=== PATIENT | male | born 1950 | race Caucasian/White ===

== ENCOUNTER 2016-12-14 06:21 | Emergency (ER) | payer MEDICARE, BC ==
--- NOTE | 2016-12-14 07:13 | ERNOTE ---
Upper Extremity HPI - General Extremities Pain Location: wrist: left - fell on to arm/ shoulder Time Seen by Provider: 12/14/16 06:55 Source: patient Exam Limitations: no limitations - Immun/Allergies/Home Medications Immunizations: IMMUNIZATION HX Immunizations Up to Date Yes History of Influenza Vaccine Yes Hx Pneumococcal Vaccination Yes Allergies/Adverse Reactions: Allergies Allergy/AdvReac Type Severity Reaction Status Date / Time No Known Allergies Allergy Verified 12/14/16 06:44 Home Medications: HOME MEDICATIONS Aspirin [Aspirin Enteric Coated] 81 mg PO DAILY 12/16/12 [Last Taken Unknown] Atenolol [Tenormin] 12.5 mg PO DAILY 12/16/12 [Last Taken Unknown] FLUoxetine HCL [Prozac] 40 mg PO DAILY 12/16/12 [Last Taken Unknown] [place]-3 Fatty Acids [Fish Oil] 1,000 mg PO DAILY 12/16/12 [Last Taken Unknown] Parsley/Garlic [Garlic & Parsley Tablet] 1 each PO DAILY 12/16/12 [Last Taken Unknown] Simvastatin [Zocor] 20 mg PO HS 12/16/12 [Last Taken Unknown] Calcium/Cranberry Fruit [Cranberry 400 mg Caplet] 1 each PO DAILY 08/11/13 [ Last Taken Unknown] Cholecalciferol (Vitamin D3) [Vitamin D] 400 unit PO DAILY 08/11/13 [Last Taken Unknown] Cyanocobalamin/Folic Acid [Vitamin W87-Snxmu Acid Tablet] 1 each PO DAILY [Last Taken Unknown] Vitamin B Complex [B Complex] 1 each PO DAILY 08/11/13 [Last Taken Unknown] metFORMIN HCL [Glucophage] 850 mg PO BID 08/11/13 [Last Taken Unknown] Phenylephrine/Dm/Acetaminop/GG [Sudafed PE Cold & Cough Caplet] 1 each PO DAILY PRN 10/23/13 [Last Taken Unknown] - History of Present Illness Narrative: Pt was walking the dog this am and slipped on wet grass injuring his left shoulder and wrist Occurred: just prior to arrival Location of Incident: home Severity: mild, moderate Method of Injury: Reports: fell Reason for Fall: Reports: slipped Loss of Consciousness: Reports: no loss of consciousness Modifying Factors - (Improves): Reports: immobilization Modifying Factors - (Worsens): Reports: movement Associated Symptoms: Denies: numbness distally Review of Systems - Review of Systems Constitutional: Absent: recent illness EYE: Absent: vision changes ENT: Absent: nose congestion, nasal drainage Respiratory: Absent: shortness of breath, cough Cardiology: Absent: chest pain, palpitations Gastrointestinal/Abdominal: Present: no symptoms reported Genitourinary: Present: no symptoms reported Musculoskeletal: Present: See HPI. Absent: back pain, neck pain Skin: Present: See HPI Neurological: Absent: headache, dizziness/light-headedness Endocrine: Present: no symptoms reported Hematologic/Lymphatic: Present: no symptoms reported Psych: Present: no symptoms reported - Patient's Past Medical History Patient History - Medical: Arthritis, Diabetes Type 2, Kidney stone, Renal Failure, Other - Marfan's syndrome Patient History - Cardiac/Respiratory: Other - mildly enlarged aortic root Patient History - Cancer: No Hx of Cancer Patient History - Surgical Procedures: Cholecystectomy, T & A, Other Patient History - Other: None - Social History Living Situations: home Psych History: Hx of Depression Smoking Status: Never smoker Have you smoked in the past 12 months: No Do you dip or chew tobacco: No Alcohol Use: none Drug Use: none - Immunizations Immunizations Up to Date: Yes Hx Pneumococcal Vaccination: Yes History of Influenza Vaccine: Yes Physical Exam - Physical Exam General Appearance: Present: wd/wn, alert, no apparent distress Eye Exam: Normal inspection: bilateral, PERRL: bilateral Ears, Nose, Throat: Present: normal ENT inspection Neck: Present: normal inspection, nontender, supple Respiratory: Present: no respiratory distress, no accessory muscle use. Absent : chest tenderness Cardiovascular/Chest: Present: regular rate, rhythm Back Exam: Present: normal inspection, normal range of motion, no vertebral tenderness Extremity Exam: Present: normal except -, decreased range of motion - left wrist , bony tenderness - left wrist medial more than lateral, joint swelling - left wrist mild Neurological Exam: Present: alert, oriented, normal mood/affect Skin Exam: Present: warm/dry, other - abrasions bilateral knees, elbows, wrists no lacerations minimal bleeding ED Progress - Vital Signs Patient's Vital Signs:: I have reviewed the patient's vital signs. Vital Signs: Vital Signs 12/14/16 06:37 Temperature 36.2 C L Pulse Rate 62 Respiratory 20 Rate Blood Pressure 117/60 O2 Sat by Pulse 98 Oximetry - X-Ray X-Ray #1 X-Ray: wrist Interpretation: Reviewed by me X-ray Comments: comminuted distal radius fracture with volar displacement and intraarticular extension. X-Ray #2 X-Ray: shoulder Interpretation: Reviewed by me X-ray Comments: no acute changes. - Progress/Reassessment Chief Complaint: Wrist Injury/Pain Progress Note-Subjective: 12/14/16 08:[address] Elizodno and he reviewed the patients x-ray. He would like a OCL splint placed on the wrist and the patient to return at 10:30 today for surgery. I offered IM pain medication for the patient and the patient declined. Pt instructed to remain NPO. Pt and express understanding Departure Clinical Impression: Fracture of left distal radius Qualifiers: Encounter type: initial encounter Fracture type: closed Fracture morphology: Alejandra's Qualified Code(s): S52.542A - Alejandra's fracture of left radius, initial encounter for closed fracture - Departure Disposition: Home Follow Up Needed Condition: Good Instructions: Colles Fracture Additional Instructions: Return here at 10:30 for surgery. Do not eat or drink anything. Referrals: Roe Jacques DO [Primary Care Provider] -
--- OUTSIDE RECORDS SUMMARY | 2016-12-14 07:32 | XMS REPORT | Continuity of Care Document ---
:1950 Author Organization [facility] ([facility]) Address [place] [address] Phone [phone] Care Team Providers Name Role Phone Roe Jacques Primary Care Provider [phone] Source Comments This disclosure is being made pursuant to the Care Everywhere program, applicable federal and state laws, and may not contain all informaitonavailable regarding this patient.[facility] ([facility]) Active Allergies and Adverse Reactions No Known Allergies Current Medications Prescription Sig. Disp. Refills Start Date End Date Status aspirin 81 mg tablet take 81 mg by Active mouth daily. simvastatin (ZOCOR) 20 mg take 20 mg by Active tablet mouth every evening. atenolol (TENORMIN) 25 mg Take 12.5 mg by Active tablet mouth every evening. FLUoxetine (PROZAC) 20 mg take 20 mg by Active capsule mouth daily. DOCOSAHEXANOIC ACID/EPA Take by mouth Active (FISH OIL PO) daily. VITAMIN B COMPLEX PO Take by mouth Active daily. GARLIC PO Take by mouth Active daily. CRANBERRY EXTRACT PO Take by mouth Active daily. Ca Cmb Take 1,000 mg by Active No.[id number]-Aloe mouth. 120-1,000-10 mg-unit-mg Tab DEXTRAN 70/HYPROMELLOSE Instill onto the Active (ARTIFICIAL TEARS OPHTH) eye as needed. metFORMIN 850 mg tablet 2 times daily. 10/10/2015 Active cyanocobalamin (VITAMIN Active B-12) PO cholecalciferol (VITAMIN Active D3) PO Active Problems Problem Noted Date ERM OS (epiretinal membrane, left eye) 11/24/2013 Posterior capsular opacification, left eye 11/24/2013 Retinal holes 09/29/2013 Hx of macula on Retinal detachment OD s/p repair 09/05/11. 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 09/08/2013 Pseudophakia, both eyes 01/07/2012 Retinoschisis-retinal detachment and lattice degeneration, right eye, s/p laser demarcation, 2008 Diabetes mellitus, type 2 06/17/2009 Hypertension 06/17/2009 Hyperlipidemia 06/17/2009 Aortic root dilatation Overview: Formatting of this note may be different from the original. CARDIOVASCULAR PROCEDURES Echo/MUGA: Echo (Normal EF, Ao measures 4.06cm) - 10/13/2012 Echo (Normal EF, Ao root measures 3.9cm) - 05/22/2011 Echo (Normal EF, Ao root measures 3.5cm) - 10/24/2015 Pulmonary embolism Immunizations Name Dates Previously Given Next Due Influenza, unspecified 04/21/2009 Novel Inluenza H1N1, unspecified 06/07/2009 Social History Tobacco Use Types Packs/Day Years Used Date Never Smoker Smokeless Tobacco: Never Used Tobacco Cessation:Counseling Given: Yes Comments: Alcohol Use Drinks/Week oz/Week Comments Yes 1 Cans of beer 0.5 Last Filed Vital Signs Vital Sign Reading Time Taken Blood Pressure 90/64 11/03/2015 1:26 PM CDT Pulse 66 11/03/2015 1:26 PM CDT Temperature 36.6 C (97.9 F) 01/03/2012 8:00 AM CDT Respiratory Rate 16 01/03/2012 8:00 AM CDT Height 2.057 m (6' 8.98") 11/03/2015 1:26 PM CDT Weight 112.492 kg (248 lb) 11/03/2015 1:26 PM CDT Body Mass Index 26.59 11/03/2015 1:26 PM CDT Oxygen Saturation 98% 01/03/2012 8:00 AM CDT Plan of Care Health Maintenance Due Date Last Done Comments HCV Screening 1950 Hepatitis B Vaccine (1 of 3 - Primary Series) 1950 Tdap Vaccine 1959 Td Vaccine 1966 Colonoscopy 1998 Prostate Cancer Screening 1998 Zoster Vaccine 2008 DIABETIC: Hemoglobin A1C 12/09/2009 06/10/2009 DIABETIC: Cholesterol 06/10/2010 06/10/2009 Diabetic: Hdl 06/10/2010 06/10/2009 Diabetic: Ldl 06/10/2010 06/10/2009 DIABETIC: Microalbumin 06/10/2010 06/10/2009 DIABETIC: Triglycerides 06/10/2010 06/10/2009 DIABETIC: Foot Exam 12/19/2010 DIABETIC: Retinal Eye Exam 12/19/2010 Pneumococcal Vaccine (1 of 2 - PCV13) 2013 Influenza Vaccine: Seasonal (Season Ended) 2017 04/21/2009 Results from Last 3 Months Not on file
[2016-12-14 07:38] VITALS: BP 109/54
== END 2016-12-14 08:45 | disposition home or self-care (01) ==
LOC: ER 06:21
PROC: 2W3DX1Z Immobilization of Left Lower Arm using Splint (ICD-10-PCS; principal; 2016-12-14)
DX: S52.542A Smith's fracture of left radius, initial encounter for closed fracture (principal); Z87.442 Personal history of urinary calculi; W01.0XXA Fall on same level from slipping, tripping and stumbling without subsequent striking against object, initial encounter; Y93.K1 Activity, walking an animal; Y92.009 Unspecified place in unspecified non-institutional (private) residence as the place of occurrence of the external cause

== ENCOUNTER 2016-12-14 10:22 | Day surgery (SDC) | payer MEDICARE, BC ==
[~2016-12-14 10:22] MED LIST: RINGER'S SOLUTION,LACTATED 1,000 ML IV PRN; ceFAZolin SODIUM 1 GM VIAL IV PRN
--- OUTSIDE RECORDS SUMMARY | 2016-12-14 10:26 | XMS REPORT | Continuity of Care Document ---
:1950 Author Organization [facility] ([facility]) Address [place] [address] Phone [phone] Care Team Providers Name Role Phone Roe Jacques Primary Care Provider [phone] Source Comments This disclosure is being made pursuant to the Care Everywhere program, applicable federal and state laws, and may not contain all informaitonavailable regarding this patient.[facility] ([facility]) Active Allergies and Adverse Reactions No [...] Ca Cmb Take 1,000 mg by Active No.[id number]-Aloe mouth. 120-1,000-10 mg-unit-mg Tab DEXTRAN 70/HYPROMELLOSE Instill [...]
[2016-12-14] MEDS ORDERED: RINGER'S SOLUTION,LACTATED 1,000 ML IV ONE ×3 (11:30→14:30)
[2016-12-14] MEDS ORDERED: ceFAZolin SODIUM 1 GM VIAL IV ONE (14:15)
--- NOTE | 2016-12-14 16:19 | OR ---
Operative Report - Dictated Report Narrative: Date: 12/14/2016 Surgeon: Suresh Elizondo M.D. Forge Helper: None Preoperative diagnosis: Closed comminuted left Distal radius fracture 6 fragments with intra-articular extension Postoperative diagnosis: Closed comminuted left Distal radius fracture 6 fragments with intra-articular extension Operation: 1 - Open reduction internal fixation of left distal radius fracture 6 fragments with intra-articular extension 2 - Intraoperative interpretation of x-rays Retained implants: Alejandra & Nephew D rad wide left standard distal radius plate with associated screws Anesthesia: General plus regional Tourniquet time: 76 Minutes at 250 mmHg Estimated blood loss: Minimal Drains: None Specimen: None Complications: None Indications: Mr. Giles is a 66-year-old gentleman who injured the left arm after tripping and falling while walking his dog. They were initially treated in the ER and splinted. Seen in the preoperative holding area and discuss the options for treatment. He wished to proceed with surgical treatment. The risks and benefits alternatives were discussed. Risks of , blood clots, bleeding, infection, nerve/tendon/blood vessel injury, malunion, nonunion, failure of implants, prominent implants, delayed tendon rupture, and need for additional procedures were discussed. Consent was obtained in the preoperative holding area. Procedure: After marking the correct extremity in the preoperative holding area, the patient was taken to the operating room. A timeout was performed. Anesthesia placed a regional block followed by general anesthetic. The arm was placed on an armboard with all bony prominences well-padded on the rest of the body. IV antibiotics consisting of Ancef were administered. A well-padded tourniquet was applied to the upper surgical arm. The arm was pre-scrubbed with chlorhexidine and prepped and draped in a standard sterile fashion. After exsanguinating the extremity and inflating the tourniquet to 250 mmHg, a longitudinal incision was made over the flexor carpi radialis. This was sharply dissected down through the skin to the tendon sheath. The tendon sheath was incised in line with the tendon. The tendon was mobilized radially, and the deep fascia was incised. The flexor pollicis longus was mobilized ulnarly exposing the pronator quadratus. Pronator quadratus was elevated off the radial aspect of the distal radius exposing the fracture. The fracture was noted to be a volar Mcgarry's fracture with volar comminution intra-articular comminution and dorsal comminution. Using mini C-arm, the fracture was reduced and preliminarily pinned in the place through the radial styloid. Once it was felt that we adequately preliminarily stabilized the fracture, the plate was pinned in the place. This was visualized on AP and lateral views to be centered over the distal radius as well as not excessively distal. Once it was felt that the plate was in the correct position a series of distal locking and proximal nonlocking and locking screws were placed. Mini C-arm was utilized in order to confirm the length and placement of the screws. Once the wrist was stabilized, final images were obtained to ensure that the screws were not prominent dorsally nor into the joint space. The distal radial ulnar joint was then stressed in supination and pronation and neutral, and it was noted to be stable. It was felt that the fracture was adequately stabilized and the wounds were then thoroughly irrigated. The pronator quadratus was repaired over the plate using 4-0 Vicryl. The wounds were again thoroughly irrigated and tourniquet was deflated. Hemostasis was obtained and there was no excessive bleeding. Subcutaneous tissue was closed with 4-0 Vicryl and the skin with 4-0 nylon. Sterile dressings consisting of Xeroform, 4 x 4, soft roll, and a well- padded dorsal plaster short arm splint was applied. All sponge, sharp, and instrument counts were correct prior to closing the wounds. The patient was awoken and transferred to the postanesthesia care unit in stable condition.
[2016-12-14 17:35] VITALS: BP 116/49
== END 2016-12-14 10:23 | disposition home or self-care (01) ==
LOC: AMB 10:22
PROVIDERS: ATTEND Orthopaedic Surgery
PROC: 0PSJ04Z Reposition Left Radius with Internal Fixation Device, Open Approach (ICD-10-PCS; principal; 2016-12-14 13:50)
DX: S52.572A Other intraarticular fracture of lower end of left radius, initial encounter for closed fracture (principal); E11.9 Type 2 diabetes mellitus without complications; Q87.40 Marfan syndrome, unspecified; W01.0XXA Fall on same level from slipping, tripping and stumbling without subsequent striking against object, initial encounter; Z68.26 Body mass index [BMI] 26.0-26.9, adult; S52.542A Smith's fracture of left radius, initial encounter for closed fracture; Z87.442 Personal history of urinary calculi; Y93.K1 Activity, walking an animal; Y92.009 Unspecified place in unspecified non-institutional (private) residence as the place of occurrence of the external cause
CPT/HCPCS: 25609; 29125; 73030; 73110; 99282; C1713